=== PATIENT | male | born 1995 | race Caucasian/White ===

== ENCOUNTER 2018-05-02 22:43 | Emergency (ER) | payer OTHER ==
[2018-05-02 22:47] VITALS: BP 131/95
--- NOTE | 2018-05-02 22:48 | ER Report ---
History and Physical Time Seen By MD: 22:49 HPI/ROS CHIEF COMPLAINT: Thumb laceration HISTORY OF PRESENT ILLNESS: This is a 22-year-old male. He is taking out the trash and cut his left thumb on some glass that was in the trash. He does not remember when his last tetanus shot was. The cut is on the tip of the thumb, no interference with movement or sensation. Bleeding is controlled. Allergies: Coded Allergies: No Known Drug Allergies (Unverified , 05/02/18) Home Meds Active Scripts Cephalexin Monohydrate (CEPHALEXIN) 500 Mg Cap, 500 MG PO Q6H, #20 CAP 0 Refills Prov:TIM BANG MD 05/02/18 Reviewed Nurses Notes: Yes Constitutional Vital Sign - Last 24 Hours 05/02/18 22:47 Temp 98.6 Pulse 87 Resp 12 B/P (MAP) 131/95 Pulse Ox 95 O2 Delivery Room Air Physical Exam Gen.: Alert, no acute distress. Skin: 2 cm laceration tip of the left thumb. Musculoskeletal: Normal motor function, no evidence of tendon compromise. Neuro: Normal sensation. Cardiovascular: Normal cap refill. Medical Decision Making ED Course/Re-evaluation ED Course Procedure: Laceration Repair Verbal consent from patient after discussing repair options, risks and benefits. Wound cleaned extensively with Hibiclens and saline. Anesthesia: Digital block, 1% lidocaine without epinephrine, 0.5% bupivacaine without epinephrine. Location: Tip of the left thumb. Length: 2 cm. Character: Linear subcutaneous. There were no deep structures involved. No tendon injury was identified. Wound repair: 5 interrupted 4-0 Ethilon sutures. The wound repair was simple and performed by myself. Wound care instructions discussed. Sutures need to be removed in 7 days. Tetanus booster given. Cephalexin 500mg four times a day for 5 days. Decision to Disposition Date: May 02, 2018 Decision to Disposition Time: 23:15 Depart Departure Latest Vital Signs Vital Signs Date Time Temp Pulse Resp B/P (MAP) Pulse Ox O2 Delivery O2 Flow Rate FiO2 05/02/18 22:47 98.6 87 12 131/95 95 Room Air Impression: Primary Impression: Laceration of thumb Condition: Improved Disposition: HOME OR SELF-CARE New Scripts Cephalexin Monohydrate (CEPHALEXIN) 500 Mg Cap 500 MG PO Q6H, #20 CAP 0 Refills Prov: TIM BANG MD 05/02/18 Patient Instructions: Laceration (ED) Additional Instructions: Wound Care: Wash the wound once a day with soap and water. Dry the wound and apply a small amount of antibiotic ointment with a clean dressing. If the dressing becomes wet or dirty, repeat cleaning and dressing as above. No soaking the wound; no swimming. Stitches need to be removed in 5-7 days. Pain Control: Use Tylenol or ibuprofen for pain. Using and ice pack can help reduce swelling. Antibiotic: Cephalexin 500mg 4 times a day for 5 days. Problem Qualifiers Primary Impression: Laceration of thumb Encounter type: initial encounter Damage to nail status: without damage Foreign body presence: without foreign body Laterality: left Qualified Codes: S61.012A - Laceration without foreign body of left thumb without damage to nail, initial encounter TIM BANG MD May 02, 2018 22:48
[2018-05-02] MEDS ORDERED: DIPHTH/TETANUS/ACEL. PERTUSSIS IM ONLY ONE (23:00)
[2018-05-02] MEDS ORDERED: CEPH500C24 PO ×2 (23:00→23:01)
[2018-05-02] MEDS ORDERED: CEPHALEXIN 500 MG CAP TH 2 CAP/BOTTLE PO ONE (23:00)
[2018-05-03] MEDS ORDERED: CEPHALEXIN 500 MG CAP TH 2 CAP/BOTTLE PO SCH ×2 (12:00)
== END 2018-05-02 23:25 | disposition home or self-care (01) ==
LOC: ER 22:59
DX: S61.012A Laceration without foreign body of left thumb without damage to nail, initial encounter (principal); W25.XXXA Contact with sharp glass, initial encounter
CPT/HCPCS: 90471; 90715; 99283